=== PATIENT | female | born 1940 | race Caucasian/White ===

== ENCOUNTER → 2016-08-21 | Outpatient (CLI) | payer OTHER | LOC: FIMAGING 13:14 | PROVIDERS: ATTEND Family Medicine | DX: R22.32 Localized swelling, mass and lump, left upper limb (principal); Z85.820 Personal history of malignant melanoma of skin ==

== ENCOUNTER → 2016-08-23 | Outpatient (CLI) | payer OTHER | LOC: FIMAGING 13:20 | PROVIDERS: ATTEND Family Medicine | DX: R22.32 Localized swelling, mass and lump, left upper limb (principal); Z85.820 Personal history of malignant melanoma of skin | CPT/HCPCS: G0204 ==

== ENCOUNTER 2016-08-26 06:33 | Day surgery (SDC) | payer OTHER ==
[~2016-08-26 06:33] MED LIST: ceFAZolin 2 GM/DEXTROSE 100 ML IV ONE
[2016-08-26] MEDS ORDERED: LIDOCAINE 1% 5 ML SDV ONE (06:47)
[2016-08-26 07:45] LABS: ANION GAP 12 mEq/L (8-16); CALCIUM 9.8 mg/dL (8.5-10.4); CARBON DIOXIDE 24 mEq/l (22-31); CHLORIDE 109 mEq/L (97-110); CREATININE 0.7 mg/dL (0.6-1.0); GLOMERULAR FILTRATION RATE > 60; GLUCOSE 158 mg/dL (70-100); POTASSIUM 4.2 mEq/L (3.5-5.2); SODIUM 145 mEq/L (134-144)
[2016-08-26] MEDS ORDERED: LIDOCAINE 1% 5 ML SDV ID PRN (07:46)
[2016-08-26] MEDS ORDERED: LR 1,000 ML IV ONE (07:46)
[2016-08-26] MEDS ORDERED: BUPIVACAINE/EPI 0.25% 30 ML SDV ONE (08:02)
[2016-08-26] MEDS ORDERED: MIDAZOLAM 2 MG/2 ML VIAL ONE (08:09)
[2016-08-26] MEDS ORDERED: fentaNYL 100 MCG/2 ML INJ ONE (08:11)
[2016-08-26] MEDS ORDERED: PROPOFOL 200 MG/20 ML VIAL ONE ×2 (08:12)
[2016-08-26] MEDS ORDERED: LIDOCAINE 2% 5 ML SDV ONE (08:42)
[2016-08-26] MEDS ORDERED: ONDANSETRON 4 MG/2 ML VIAL ONE (08:42)
--- NOTE | 2016-09-02 10:37 | GOP ---
[f rep st] OPERATIVE REPORT DATE OF OPERATION: 08/26/2016 SURGEON: Alberto Velasquez MD CORPORATE TRAVEL MANAGER: OUMOU Darling. ANESTHESIA: General endotracheal per Kelley Alas MD. PREOPERATIVE DIAGNOSIS: Left axillary mass. POSTOPERATIVE DIAGNOSIS: Left axillary mass. PROCEDURE PERFORMED: FINDINGS: Large, what appeared to be enlarged left axillary lymph node, removed completely. SPECIMENS: Left axillary mass. ESTIMATED BLOOD LOSS: 5 cc. DESCRIPTION OF PROCEDURE: The patient and her son were greeted in the preoperative area. Once agai n, risks, benefits, and alternatives were discussed. Consent was signed. She was then brought back to the operative suite and placed on the OR table in supine position. After all anesthesia machine s, including SCDs, were on and functioning, [employer] time-out was performed. Gener al endotracheal anesthesia was then induced without incident. Antibiotics were given on-call to the operating room. The patient's left axilla was then prepped and draped in typical sterile fashion. I made an incision over the area of the skin crease in the left axilla and carried it down to the s ubcutaneous tissue where I identified a palpable mass consistent with preoperative imaging. I grasp ed this mass with an Allis clamp. I cleansed it of all its surrounding tissues. I identified some small vessels which I clipped. After successfully clipping, I removed the mass from the remainder o f the tissues and passed it off. Hemostasis was achieved in the cavity with gentle pressure and deb ctrocautery. After hemostasis was noted to be excellent, I closed in layers. The subcutaneous tiss ue was reapproximated with interrupted 3-0 Vicryl, and the skin was closed with running 4-0 Monocryl . Steri-Strips, Mastisol, and sterile dressings were placed. The patient was then extubated in the operative suite and taken to the PACU in satisfactory condition. PROCEDURE PERFORMED: Excisional biopsy of left axillary mass. DRAINS: None. COMPLICATIONS: None. COUNTS: All counts were reported as correct x2. /[id number]/MODL
== END 2016-08-26 10:35 | disposition home or self-care (01) ==
LOC: FSGY 06:33
PROVIDERS: ATTEND Surgery
PROC: 07B60ZX Excision of Left Axillary Lymphatic, Open Approach, Diagnostic (ICD-10-PCS; principal; 2016-08-26 08:15)
DX: C77.3 Secondary and unspecified malignant neoplasm of axilla and upper limb lymph nodes (principal); Z85.820 Personal history of malignant melanoma of skin; I10 Essential (primary) hypertension; E11.9 Type 2 diabetes mellitus without complications; G47.33 Obstructive sleep apnea (adult) (pediatric)
CPT/HCPCS: J0690; J2250; J2405; J2704; J3010

== ENCOUNTER → 2016-09-23 | Outpatient (CLI) | payer OTHER ==
[~2016-09-23] MED LIST changes: +GADOBUTROL 10 ML VIAL IVP ONE; -ceFAZolin 2 GM/DEXTROSE 100 ML IV ONE
== END ==
LOC: FIMAGING 15:12
PROVIDERS: ATTEND Internal Medicine Hematology & Oncology
DX: Z03.89 Encounter for observation for other suspected diseases and conditions ruled out (principal); R90.82 White matter disease, unspecified; C43.9 Malignant melanoma of skin, unspecified
CPT/HCPCS: 70553; A9585